=== PATIENT | female | born 1965 | race Caucasian/White ===

== ENCOUNTER 2017-09-23 20:33 | Emergency (ER) | payer OTHER ==
[~2017-09-23] VITALS: Ht 167.6 cm; Wt 50.0 kg
[2017-09-23 20:38] VITALS: BP 134/82; PULSE 104; O2SAT 95
--- NOTE | 2017-09-23 21:14 | PD ---
HPI Chief Complaint: Psychiatric Symptoms Time Seen by Provider: 21:01 Travel History International Travel<30 days: No Contact w/Intl Traveler<30days: No Traveled to known affect area: No History of Present Illness HPI 51-year-old female brought in by PD under Leija act. According to the Leija act the patient took too many of her Lamictal and has been on a crack binge. She is unable to stand and is having convulsions. She is also having hallucinations. Upon arrival to the emergency department the patient is awake and alert. She is able to tell me her name and where she is and that she took 1 hit of crack this morning, however she does not answer any other questions. [facility] Social History Tobacco Use: Yes Allergies-Medications (Allergen,Severity, Reaction): Coded Allergies: No Allergy Information Available (Unverified , 09/23/17) Reported Meds & Prescriptions Reported Meds & Active Scripts Active Reported Lamotrigine 100 Mg Tab 100 Mg PO DAILY Review of Systems ROS Limitations: Intoxication Physical Exam Narrative GENERAL: Well-developed, well-nourished, awake, alert, fidgeting, mumbling, no apparent distress. SKIN: Focused skin assessment warm/diaphoretic. No rash. No pallor. HEAD: Atraumatic. Normocephalic. EYES: Pupils equal and round. No scleral icterus. No injection or drainage. ENT: No nasal bleeding or discharge. Mucous membranes pink and dry. NECK: Trachea midline. No JVD. CARDIOVASCULAR: Regular rate and rhythm. RESPIRATORY: No accessory muscle use. Clear to auscultation. Breath sounds equal bilaterally. GASTROINTESTINAL: Abdomen soft, non-tender, nondistended. Hepatic and splenic margins not palpable. MUSCULOSKELETAL: No obvious deformities. No clubbing. No cyanosis. No edema. NEUROLOGICAL: Awake and alert. No obvious cranial nerve deficits. Motor grossly within normal limits. Normal speech. PSYCHIATRIC: Unable to assess secondary to intoxication Data Data Last Documented VS Vital Signs Date Time Temp Pulse Resp B/P (MAP) Pulse Ox O2 Delivery O2 Flow Rate FiO2 09/24/17 00:42 90 20 160/89 (112) 97 Room Air 09/23/17 21:31 97.8 Orders Orders Complete Blood Count With Diff (09/23/17 21:01) Comprehensive Metabolic Panel (09/23/17 21:01) Thyroid Stimulating Hormone (09/23/17 21:01) Urinalysis - C+S If Indicated (09/23/17 21:01) Psych Screen (09/23/17 21:01) Drug Screen, Random Urine (09/23/17 21:01) Alcohol (Ethanol) (09/23/17 21:01) Salicylates (Aspirin) (09/23/17 21:01) Tylenol (Acetaminophen) (09/23/17 21:01) Lamictal (Lamotrigine) (09/23/17 21:11) Lorazepam Inj (Ativan Inj) (09/23/17 21:15) Creatine Kinase (Cpk) (09/23/17 21:10) Sodium Chlor 0.9% 1000 Ml Inj (Ns 1000 M (09/23/17 22:15) Sodium Chlor 0.9% 1000 Ml Inj (Ns 1000 M (09/23/17 23:15) Labs Laboratory Tests Test 09/23/17 21:10 09/23/17 21:21 White Blood Count 12.5 TH/MM3 Red Blood Count 4.65 MIL/MM3 Hemoglobin 13.2 GM/DL Hematocrit 40.2 % Mean Corpuscular Volume 86.4 FL Mean Corpuscular Hemoglobin 28.3 PG Mean Corpuscular Hemoglobin Concent 32.8 % Red Cell Distribution Width 13.2 % Platelet Count 334 TH/MM3 Mean Platelet Volume 8.1 FL Neutrophils (%) (Auto) 71.8 % Lymphocytes (%) (Auto) 20.3 % Monocytes (%) (Auto) 7.0 % Eosinophils (%) (Auto) 0.4 % Basophils (%) (Auto) 0.5 % Neutrophils # (Auto) 9.0 TH/MM3 Lymphocytes # (Auto) 2.5 TH/MM3 Monocytes # (Auto) 0.9 TH/MM3 Eosinophils # (Auto) 0.1 TH/MM3 Basophils # (Auto) 0.1 TH/MM3 CBC Comment DIFF FINAL Differential Comment Urine Color YELLOW Urine Turbidity CLEAR Urine pH 6.0 Urine Specific [place] 1.024 Urine Protein 30 mg/dL Urine Glucose (UA) NEG mg/dL Urine Ketones NEG mg/dL Urine Occult Blood SMALL Urine Nitrite NEG Urine Bilirubin NEG Urine Urobilinogen 2.0 MG/DL Urine Leukocyte Esterase NEG Urine RBC 9 /hpf Urine WBC 1 /hpf Urine Squamous Epithelial Cells 1 /hpf Urine Hyaline Casts 63 /lpf Urine Mucus FEW /lpf Microscopic Urinalysis Comment CULT NOT INDICATED Blood Urea Nitrogen 24 MG/DL Creatinine 1.62 MG/DL Random Glucose 142 MG/DL Total Protein 8.8 GM/DL Albumin 4.3 GM/DL Calcium Level 9.6 MG/DL Alkaline Phosphatase 125 U/L Aspartate Amino Transf (AST/SGOT) 15 U/L Alanine Aminotransferase (ALT/SGPT) 16 U/L Total Bilirubin 0.3 MG/DL Sodium Level 142 MEQ/L Potassium Level 3.9 MEQ/L Chloride Level 108 MEQ/L Carbon Dioxide Level 20.9 MEQ/L Anion Gap 13 MEQ/L Estimat Glomerular Filtration Rate 34 ML/MIN Total Creatine Kinase 91 U/L Thyroid Stimulating Hormone 3rd Gen 2.280 uIU/ML Salicylates Level 6.9 MG/DL Urine Opiates Screen POS Acetaminophen Level LESS THAN 2.0 MCG/ML Urine Barbiturates Screen NEG Urine Amphetamines Screen POS Urine Benzodiazepines Screen POS Urine Cocaine Screen POS Urine Cannabinoids Screen NEG Ethyl Alcohol Level LESS THAN 3 MG/DL MDM Medical Decision Making Medical Screen Exam Complete: Yes Emergency Medical Condition: Yes Differential Diagnosis Drug intoxication, alcohol intoxication, metabolic abnormality Narrative Course Vital signs reviewed. Patient was initially normotensive, however when repeat blood pressure was performed while she was asleep she was hypotensive. She was given a liter normal saline IV and repeat blood pressure is 119/64. CBC is essentially unremarkable. CMP is remarkable for BUN 24, creatinine 1.62, GFR 34, random glucose 142, otherwise unremarkable. TSH is 2.28. UA is not suggestive of UTI. Urine drug screen is positive for opiates, amphetamines, benzodiazepines, cocaine. Alcohol, Tylenol, and salicylate levels are negative. Patient is medically cleared for psychiatric evaluation and disposition by them. Diagnosis Primary Impression: Substance induced mood disorder Additional Impression: Polysubstance abuse Juvenal Bae MD September 23, 2017 21:14
[2017-09-23] MEDS ORDERED: LORazepam 2 MG/ML VIAL IV PUSH ONE (21:15)
[2017-09-23] MEDS ORDERED: LAMO100T PO (21:17)
[2017-09-23 21:31] VITALS: BP 110/62; PULSE 76; RESP 20; TEMP 97.8; O2SAT 97
[2017-09-23 21:36] LABS: BASOPHIL # 0.1 TH/MM3 (0-0.2); BASOPHIL % 0.5 % (0.0-2.0); EOSINOPHIL # 0.1 TH/MM3 (0-0.4); EOSINOPHIL % 0.4 % (0.0-4.0); HEMATOCRIT 40.2 % (35.0-46.0); HEMOGLOBIN 13.2 GM/DL (11.6-15.3); LYMPH % 20.3 % (9.0-44.0); LYMPHOCYTE # 2.5 TH/MM3 (1.0-4.8); MEAN CELL VOLUME 86.4 FL (80.0-100.0); MEAN CORPUSCULAR HEMOGLOBIN 28.3 PG (27.0-34.0); MEAN CORPUSCULAR HGB CONC 32.8 % (32.0-36.0); MEAN PLATELET VOLUME 8.1 FL (7.0-11.0); MONOCYTE # 0.9 TH/MM3 (0-0.9); NEUT % 71.8 % (16.0-70.0); PLATELET COUNT 334 TH/MM3 (150-450); RED BLOOD COUNT 4.65 MIL/MM3 (4.00-5.30); RED CELL DISTRIBUTION WIDTH 13.2 % (11.6-17.2); WHITE BLOOD COUNT 12.5 TH/MM3 (4.0-11.0)
[2017-09-23 21:44] LABS: BILIRUBIN, URINE NEG (NEG); BLOOD, URINE SMALL (NEG); GLUCOSE,URINE NEG (NEG); HYALINE CAST, URINE 63 /lpf (RARE); KETONE, URINE NEG (NEG); MUCUS URINE FEW /lpf (OCC); NITRITE,URINE NEG (NEG); SQUAMOUS EPITHELIAL CELL URINE 1 /hpf (0-5); URINE COLOR YELLOW (YELLW/STRAW); URINE LEUKOCYTE ESTERASE NEG (NEG)
[2017-09-23 21:50] LABS: ALBUMIN 4.3 GM/DL (3.4-5.0); AST (GOT) 15 U/L (15-37); BICARBONATE 20.9 MEQ/L (21.0-32.0); BLOOD UREA NITROGEN 24 MG/DL (7-18); CALCIUM 9.6 MG/DL (8.5-10.1); CHLORIDE 108 MEQ/L (98-107); CREATININE 1.62 MG/DL (0.50-1.00); GLOMERULAR FILTRATION RATE 34 ML/MIN (>89); GLUCOSE,RANDOM 142 MG/DL (74-106); SODIUM (NA) 142 MEQ/L (136-145)
[2017-09-23 22:02] LABS: ALKALINE PHOSPHATASE 125 U/L (45-117); ALT (GPT) 16 U/L (10-53); TOTAL BILIRUBIN ADULT 0.3 MG/DL (0.2-1.0); TOTAL PROTEIN 8.8 GM/DL (6.4-8.2)
[2017-09-23 22:12] VITALS: BP 90/56; PULSE 69; RESP 20; O2SAT 97
[2017-09-23] MEDS ORDERED: SODIUM CHLOR 0.9% 1000 ML INJ 1,000 ML IV ONE ×2 (22:15→23:15)
[2017-09-23 22:20] VITALS: BP 88/57; PULSE 62; RESP 20; O2SAT 98
[2017-09-23 22:31] LABS: ACETAMINOPHEN LESS THAN 2.0 MCG/ML (10.0-30.0)
[2017-09-23 22:41] VITALS: BP 87/52; PULSE 69; RESP 20; O2SAT 100
[2017-09-23 23:27] VITALS: BP 119/64; PULSE 70; RESP 20; O2SAT 100
[2017-09-24 00:42] VITALS: BP 160/89; PULSE 90; RESP 20; O2SAT 97
[2017-09-24 02:54] VITALS: BP 169/89; PULSE 84; RESP 20; O2SAT 97
[2017-09-24] MEDS ORDERED: CYMB60CA PO (05:45)
[2017-09-24 07:44] VITALS: BP 139/80; PULSE 89; RESP 16; O2SAT 95
[2017-09-24] MEDS ORDERED: ACETAMINOPHEN 325 MG TAB PO ONE (07:45)
[2017-09-24] MEDS ORDERED: ONDANSETRON ODT 4 MG TAB PO ONE (07:45)
[2017-09-24 10:46] VITALS: BP 160/76; PULSE 85; RESP 16; TEMP 97.8; O2SAT 97
[2017-09-24 12:19] VITALS: BP 136/67; PULSE 68; RESP 16; O2SAT 99
[2017-09-24] MEDS ORDERED: RESP: ALBUTEROL 2.5 MG/3 ML NEB (SCH) NEB ONE (13:00)
[2017-09-24] MEDS ORDERED: diphenhydrAMINE HCL 25 MG CAP PO STA (13:22)
[2017-09-24] MEDS ORDERED: cloNIDine HCL 0.2 MG TAB PO ONE (13:30)
--- NOTE | 2017-09-24 14:12 | PD ---
Physical Exam Date Seen by Provider: September 24, 2017 Time Seen by Provider: 14:10 Data Data Last Documented VS Vital Signs Date Time Temp Pulse Resp B/P (MAP) Pulse Ox O2 Delivery O2 Flow Rate FiO2 09/24/17 14:04 09/24/17 12:19 68 16 99 Room Air 09/24/17 10:46 97.8 Orders Orders Complete Blood Count With Diff (09/23/17 21:01) Comprehensive Metabolic Panel (09/23/17 21:01) Thyroid Stimulating Hormone (09/23/17 21:01) Urinalysis - C+S If Indicated (09/23/17 21:01) Psych Screen (09/23/17 21:01) Drug Screen, Random Urine (09/23/17 21:01) Alcohol (Ethanol) (09/23/17 21:01) Salicylates (Aspirin) (09/23/17 21:01) Tylenol (Acetaminophen) (09/23/17 21:01) Lamictal (Lamotrigine) (09/23/17 21:11) Lorazepam Inj (Ativan Inj) (09/23/17 21:15) Creatine Kinase (Cpk) (09/23/17 21:10) Sodium Chlor 0.9% 1000 Ml Inj (Ns 1000 M (09/23/17 22:15) Sodium Chlor 0.9% 1000 Ml Inj (Ns 1000 M (09/23/17 23:15) Diet Regular Basic (09/24/17 Breakfast) Acetaminophen (Tylenol) (09/24/17 07:45) Ondansetron Odt (Zofran Odt) (09/24/17 07:45) Diet Regular Basic (09/24/17 Lunch) Albuterol Neb (Albuterol Neb) (09/24/17 13:00) Clonidine (Catapres) (09/24/17 13:30) Diphenhydramine (Benadryl) (09/24/17 13:22) Ed Discharge Order (09/24/17 13:44) Labs Laboratory Tests Test 09/23/17 21:10 09/23/17 21:21 White Blood Count 12.5 TH/MM3 Red Blood Count 4.65 MIL/MM3 Hemoglobin 13.2 GM/DL Hematocrit 40.2 % Mean Corpuscular Volume 86.4 FL Mean Corpuscular Hemoglobin 28.3 PG Mean Corpuscular Hemoglobin Concent 32.8 % Red Cell Distribution Width 13.2 % Platelet Count 334 TH/MM3 Mean Platelet Volume 8.1 FL Neutrophils (%) (Auto) 71.8 % Lymphocytes (%) (Auto) 20.3 % Monocytes (%) (Auto) 7.0 % Eosinophils (%) (Auto) 0.4 % Basophils (%) (Auto) 0.5 % Neutrophils # (Auto) 9.0 TH/MM3 Lymphocytes # (Auto) 2.5 TH/MM3 Monocytes # (Auto) 0.9 TH/MM3 Eosinophils # (Auto) 0.1 TH/MM3 Basophils # (Auto) 0.1 TH/MM3 CBC Comment DIFF FINAL Differential Comment Urine Color YELLOW Urine Turbidity CLEAR Urine pH 6.0 Urine Specific [place] 1.024 Urine Protein 30 mg/dL Urine Glucose (UA) NEG mg/dL Urine Ketones NEG mg/dL Urine Occult Blood SMALL Urine Nitrite NEG Urine Bilirubin NEG Urine Urobilinogen 2.0 MG/DL Urine Leukocyte Esterase NEG Urine RBC 9 /hpf Urine WBC 1 /hpf Urine Squamous Epithelial Cells 1 /hpf Urine Hyaline Casts 63 /lpf Urine Mucus FEW /lpf Microscopic Urinalysis Comment CULT NOT INDICATED Blood Urea Nitrogen 24 MG/DL Creatinine 1.62 MG/DL Random Glucose 142 MG/DL Total Protein 8.8 GM/DL Albumin 4.3 GM/DL Calcium Level 9.6 MG/DL Alkaline Phosphatase 125 U/L Aspartate Amino Transf (AST/SGOT) 15 U/L Alanine Aminotransferase (ALT/SGPT) 16 U/L Total Bilirubin 0.3 MG/DL Sodium Level 142 MEQ/L Potassium Level 3.9 MEQ/L Chloride Level 108 MEQ/L Carbon Dioxide Level 20.9 MEQ/L Anion Gap 13 MEQ/L Estimat Glomerular Filtration Rate 34 ML/MIN Total Creatine Kinase 91 U/L Thyroid Stimulating Hormone 3rd Gen 2.280 uIU/ML Salicylates Level 6.9 MG/DL Urine Opiates Screen POS Acetaminophen Level LESS THAN 2.0 MCG/ML Urine Barbiturates Screen NEG Urine Amphetamines Screen POS Urine Benzodiazepines Screen POS Urine Cocaine Screen POS Urine Cannabinoids Screen NEG Ethyl Alcohol Level LESS THAN 3 MG/DL [facility] Medical Record Reviewed: Yes Supervised Visit with HUMZA: No Narrative Course 51-year-old female presented initially under a Leija act for suicidal ideation. States she took too many Lamictal and went on a crack binge. Patient had a complete workup including Lamictal level which was reassuring. Labs reviewed. There is some evidence of dehydration but given patient's polysubstance abuse, this is expected. She was encouraged to drink fluids and stop doing drugs. Patient is clinically sober and discharge. She denies suicidal homicidal ideation. Leija act was lifted by psychiatric nurse practitioner. She is not felt to be a threat to herself or others at this time. She is stable for outpatient follow-up. Diagnosis Primary Impression: Substance induced mood disorder Additional Impression: Polysubstance abuse Patient Instructions: General Instructions, Mood Disorders (ED), Polysubstance Abuse (ED) Departure Forms: Tests/Procedures Additional Instruction: RETURN TO THE EMERGENCY DEPARTMENT IF SYMPTOMS PERSIST OR WORSEN. FOLLOW UP WITH PSYCHIATRY. FOLLOW UP WITH PRIMARY CARE PHYSICIAN. Disposition: 01 DISCHARGE HOME Condition: Stable Yudelka Hernandez September 24, 2017 14:12
--- NOTE | 2017-09-24 14:18 | PD.PSY.CON ---
Provisional Diagnosis Admission Date Haviland I. Polysubstance dependence including benzodiazepines, amphetamines, cocaine, opiates, history of bipolar disorder Haviland II. Cluster B trait Haviland III. Lower back pain Haviland IV. Poor insight of her substance abuse Haviland V. 55 History of Present Illness Service Psychiatry Consult Requested By Suicidal attempt by over OD Reason for Consult ER Primary Care Physician Unknown HPI The patient is 51-year-old woman, domiciled with a roommate in [place] , unemployed, supported by [id number] kids, with psychiatric history of self- reported bipolar disorder, polysubstance dependence including cocaine, amphetamines, benzodiazepines and opiate, she denies previous psychiatric hospitalizations, denies previous suicide attempts, she is a patient in [facility], she is on lamotrigine 100 mg twice daily, Latuda 40 mg, medical history of lower back pain, who brought in by PD under Leija act. According to the Leija act the patient took too many of her Lamictal and has been on a crack binge. She is unable to stand and is having convulsions. She is also having hallucinations. Upon arrival to the emergency department the patient is awake and alert. She is able to tell me her name and where she is and that she took 1 hit of crack this morning, however she does not answer any other questions. EMR was reviewed. Case discussed with nurse in charge. On psychiatric evaluation patient is calm, cooperative, she seems to be clinically sober and at baseline. She reports that she feel a little bit uncomfortable and irritable due to opiate withdrawal. She reports lacrimation, nausea, sweating and increased pain. Patient requests to be medicated with hydromorphone and morphine, "medications that I have been taking prescribed for over 22 years". She denies symptomatology of depression, she says that she actually feels really good mood liang. She denies suicidal and homicidal ideation, denies visual and auditory hallucinations. Future oriented. Oriented 3. She clarifies that she was taking his psychotropic medications with drugs to get high. Review of Systems Constitutional: DENIES: Diaphoretic episodes, Fatigue, Fever, Weight gain, Weight loss, Chills, Dizziness, Change in appetite, Night Sweats Endocrine: DENIES: Abnorml menstrual pattern, Heat/cold intolerance, Polydipsia , Polyuria, Polyphagia Eyes: DENIES: Blurred vision, Diplopia, Eye inflammation, Eye pain, Vision loss , Photosensitivity, Double Vision Ears, nose, mouth, throat: DENIES: Tinnitus, Hearing loss, Vertigo, Nasal discharge, Oral lesions, Throat pain, Hoarseness, Ear Pain, Running Nose, Epistaxis, Sinus Pain, Toothache, Odynophagia Respiratory: DENIES: Apneas, Cough, Snoring, Wheezing, Hemoptysis, Sputum production, Shortness of breath Cardiovascular: DENIES: Chest pain, Palpitations, Syncope, Dyspnea on Exertion , PND, Lower Extremity Edema, Orthopnea, Claudication Gastrointestinal: COMPLAINS OF: Nausea, DENIES: Abdominal pain, Black stools, Bloody stools, Constipation, Diarrhea, Vomiting, Difficulty Swallowing, Anorexia Genitourinary: DENIES: Abnormal vaginal bleeding, Dysmenorrhea, Dyspareunia, Sexual dysfunction, Urinary frequency, Urinary incontinence, Urgency, Hematuria , Dysuria, Nocturia, Vaginal discharge Musculoskeletal: DENIES: Joint pain, Muscle aches, Stiffness, Joint Swelling, Back pain, Neck pain Integumentary: DENIES: Abnormal pigmentation, Pruritus, Rash, Nail changes, Breast masses, Breast skin changes, Nipple discharge Hematologic/lymphatic: DENIES: Bruising, Lymphadenopathy Immunologic/allergic: DENIES: Eczema, Urticaria Neurologic: DENIES: Abnormal gait, Headache, Localized weakness, Paresthesias, Seizures, Speech Problems, Tremor, Poor Balance Psychiatric: COMPLAINS OF: Anxiety, DENIES: Confusion, Mood changes, Depression , Hallucinations, Agitation, Suicidal Ideation, Homicidal Ideation, Delusions Past Family Social History Coded Allergies: No Allergy Information Available (Unverified , 09/23/17) Reported Medications Duloxetine DR (Cymbalta DR) 60 Mg Capdr, 60 MG PO DAILY, #30 CAP 0 Refills 09/24/17 Lamotrigine (Lamotrigine) 100 Mg Tab, 100 MG PO DAILY for Control Seizures, #30 TAB 0 Refills 09/23/17 Family Psych History No family psychiatric history Social History Patient was born and raised in [place], she lives in [place] with her roommate, unemployed, single, supported by [facility], no kids, her highest level of education is college Patient's Strengths (min. 2) Verbal communication, outpatient psychiatric care in [facility] Physical Exam Patient is tremulous, shaky, anxious, restless Vital Signs Vital Signs Date Time Temp Pulse Resp B/P (MAP) Pulse Ox O2 Delivery O2 Flow Rate FiO2 5/25/18 14:04 09/24/17 12:19 68 16 99 Room Air 09/24/17 10:46 97.8 I/O 09/24/17 09/24/17 09/25/17 08:00 16:00 00:00 Intake Total 1000 ml Balance 1000 ml Lab Results Test 09/23/17 21:10 09/23/17 21:21 White Blood Count 12.5 TH/MM3 Red Blood Count 4.65 MIL/MM3 Hemoglobin 13.2 GM/DL Hematocrit 40.2 % Mean Corpuscular Volume 86.4 FL Mean Corpuscular Hemoglobin 28.3 PG Mean Corpuscular Hemoglobin Concent 32.8 % Red Cell Distribution Width 13.2 % Platelet Count 334 TH/MM3 Mean Platelet Volume 8.1 FL Neutrophils (%) (Auto) 71.8 % Lymphocytes (%) (Auto) 20.3 % Monocytes (%) (Auto) 7.0 % Eosinophils (%) (Auto) 0.4 % Basophils (%) (Auto) 0.5 % Neutrophils # (Auto) 9.0 TH/MM3 Lymphocytes # (Auto) 2.5 TH/MM3 Monocytes # (Auto) 0.9 TH/MM3 Eosinophils # (Auto) 0.1 TH/MM3 Basophils # (Auto) 0.1 TH/MM3 CBC Comment DIFF FINAL Differential Comment Urine Color YELLOW Urine Turbidity CLEAR Urine pH 6.0 Urine Specific [place] 1.024 Urine Protein 30 mg/dL Urine Glucose (UA) NEG mg/dL Urine Ketones NEG mg/dL Urine Occult Blood SMALL Urine Nitrite NEG Urine Bilirubin NEG Urine Urobilinogen 2.0 MG/DL Urine Leukocyte Esterase NEG Urine RBC 9 /hpf Urine WBC 1 /hpf Urine Squamous Epithelial Cells 1 /hpf Urine Hyaline Casts 63 /lpf Urine Mucus FEW /lpf Microscopic Urinalysis Comment CULT NOT INDICATED Blood Urea Nitrogen 24 MG/DL Creatinine 1.62 MG/DL Random Glucose 142 MG/DL Total Protein 8.8 GM/DL Albumin 4.3 GM/DL Calcium Level 9.6 MG/DL Alkaline Phosphatase 125 U/L Aspartate Amino Transf (AST/SGOT) 15 U/L Alanine Aminotransferase (ALT/SGPT) 16 U/L Total Bilirubin 0.3 MG/DL Sodium Level 142 MEQ/L Potassium Level 3.9 MEQ/L Chloride Level 108 MEQ/L Carbon Dioxide Level 20.9 MEQ/L Anion Gap 13 MEQ/L Estimat Glomerular Filtration Rate 34 ML/MIN Total Creatine Kinase 91 U/L Thyroid Stimulating Hormone 3rd Gen 2.280 uIU/ML Salicylates Level 6.9 MG/DL Urine Opiates Screen POS Acetaminophen Level LESS THAN 2.0 MCG/ML Urine Barbiturates Screen NEG Urine Amphetamines Screen POS Urine Benzodiazepines Screen POS Urine Cocaine Screen POS Urine Cannabinoids Screen NEG Ethyl Alcohol Level LESS THAN 3 MG/DL Mental Status Examination Appearance: Appropriate Consciousness: Alert Orientation: x4 Motor Activity: Normal gait Speech: Unremarkable Language: Adequate Fund of Knowledge: Adequate Attention and Concentration: Adequate Memory: Unremarkable Mood: Appropriate Affect: Irritable Thought Process & Associations: Intact Thought Content: Appropriate Hallucination Type: None Delusion Type: None Suicidal Ideation: No Suicidal Plan: No Suicidal Intention: No Homicidal Ideation: No Homicidal Plan: No Homicidal Intention: No Insight: Fair Judgment: Impulsive Assessment & Plan Problem List: (1) Polysubstance abuse ICD Codes: F19.10 - Other psychoactive substance abuse, uncomplicated Status: Acute Assessment & Plan: On psychiatric evaluation today the patient presents irritable, restless, reporting opiates withdrawal, but denies symptoms of depression, denies negra, denies psychosis. She denies suicidal enemas ideation , denies visual and auditory hallucinations at the moment. She is logical, coherent and relevant. Oriented 3. He seems to me that recent overdose with Lamictal was the result of maladaptive use of medications and no of a suicidal attempt. The patient has history of bipolar disorder, polysubstance dependence , she has outpatient care in [facility]. She does not meet criteria for involuntary psychiatric admission at this moment. We will continue psychiatric care as an outpatient. I will order clonidine 0.2 mg and Benadryl 25 mg p.o. a stat for symptoms of opiate withdrawal. Brief supportive psychotherapy, motivational psychoeducation provided Leija act will be lifted. Assessment & Plan Estimated LOS: Ministerio Pope MD September 24, 2017 14:18
== END 2017-09-24 14:06 | disposition home or self-care (01) ==
LOC: NEPD 20:33 → NEPJ 09-24 14:06
DX: F19.94 Other psychoactive substance use, unspecified with psychoactive substance-induced mood disorder (principal); R45.851 Suicidal ideations; F15.90 Other stimulant use, unspecified, uncomplicated; F19.90 Other psychoactive substance use, unspecified, uncomplicated; F14.90 Cocaine use, unspecified, uncomplicated; Z79.899 Other long term (current) drug therapy
CPT/HCPCS: 80053; 80175; 80307; 81001; 82550; 84443; 85025; 94664; 96361; 96374; 99284; J2060; J7030; J7613